=== PATIENT | male | born 1940 | race Caucasian/White ===

== ENCOUNTER → 2017-01-26 | Outpatient (CLI) | payer OTHER | LOC: BRMIMAGING 08:36 | PROVIDERS: ATTEND Internal Medicine Cardiovascular Disease | DX: R09.89 Other specified symptoms and signs involving the circulatory and respiratory systems (principal); I25.10 Atherosclerotic heart disease of native coronary artery without angina pectoris; E87.5 Hyperkalemia | CPT/HCPCS: 93880-PO ==

== ENCOUNTER → 2018-10-18 | Outpatient (CLI) | payer OTHER | LOC: BMCIMAGING 14:28 | PROVIDERS: ATTEND Internal Medicine | DX: I82.411 Acute embolism and thrombosis of right femoral vein (principal) ==

== ENCOUNTER → 2018-10-28 | Outpatient (CLI) | payer OTHER | LOC: FIMAGING 15:20 | PROVIDERS: ATTEND Surgery | DX: M19.071 Primary osteoarthritis, right ankle and foot (principal) ==

== ENCOUNTER → 2018-12-23 | Outpatient (CLI) | payer OTHER ==
[~2018-12-23] MED LIST: IOPAMIDOL (ISOVUE 370) 100 ML BTL IV ONE; IOPAMIDOL (ISOVUE-300) 100 ML BTL ONE
== END ==
LOC: FIMAGING 14:27
PROVIDERS: ATTEND Surgery
DX: I70.203 Unspecified atherosclerosis of native arteries of extremities, bilateral legs (principal); L03.115 Cellulitis of right lower limb; I70.0 Atherosclerosis of aorta; I70.1 Atherosclerosis of renal artery; I70.8 Atherosclerosis of other arteries; L97.811 Non-pressure chronic ulcer of other part of right lower leg limited to breakdown of skin; M25.461 Effusion, right knee; R60.9 Edema, unspecified; I73.9 Peripheral vascular disease, unspecified
CPT/HCPCS: 75635; Q9967; 82565-PO

== ENCOUNTER → 2018-12-26 | Outpatient (CLI) | payer OTHER | LOC: FIMAGING 07:07 | PROVIDERS: ATTEND Radiology Diagnostic Radiology | DX: L97.919 Non-pressure chronic ulcer of unspecified part of right lower leg with unspecified severity (principal); R60.9 Edema, unspecified ==

== ENCOUNTER 2019-01-08 06:09 | Day surgery (SDC) | payer OTHER ==
[2019-01-08] MEDS ORDERED: diphenhydrAMINE 25 MG CAP PO ONE ×2 (06:15→09:02)
[2019-01-08] MEDS ORDERED: NS 1,000 ML IV ONE (06:15)
[2019-01-08] MEDS ORDERED: DIAZEPAM 5 MG TAB PO ONE (06:15)
[2019-01-08] MEDS ORDERED: FAMOTIDINE 20 MG TAB PO ONE (06:15)
[2019-01-08] MEDS ORDERED: ASPIRIN EC 325 MG TAB PO ONE ×2 (06:15→09:02)
--- NOTE | 2019-01-08 06:44 | PDHPUP ---
History & Physical Update H&P update statement: This history and physical update is based on an assessment of the patient which was completed after admission or registration (within 24 hours), but prior to the surgery/procedure. H&P update: H&P reviewed & patient examined, no change in patient's condition since H&P completed
--- NOTE | 2019-01-08 06:44 | PDPROPOC ---
Sedation Plan of Care Sedation Plan of Care: mental status noted, patient educated of risks, benefits , alternatives, patient can tolerate sedation ASA Classification: ASA 2 Planned drugs: fentanyl, midazolam Mallampati Score: Class 2 Mallampati Reference Image: Patient passed 3-3-2 rule?: Yes
[2019-01-08 07:27] LABS: PLATELET COUNT 193 10^3/uL (150-400)
[2019-01-08 07:36] LABS: INR 1.11 (0.83-1.16); PROTIME(PATIENT) 13.9 SEC (12.0-15.0)
[2019-01-08] MEDS ORDERED: fentaNYL 100 MCG/2 ML INJ ONE ×2 (08:42→09:57)
[2019-01-08] MEDS ORDERED: MIDAZOLAM 2 MG/2 ML VIAL ONE ×2 (08:42→09:57)
[2019-01-08] MEDS ORDERED: LIDOCAINE 1% 300 MG/30 ML SDV ONE (08:42)
[2019-01-08] MEDS ORDERED: IOPAMIDOL (ISOVUE-370) 150 ML BTL IV ONE (08:43)
[2019-01-08] MEDS ORDERED: FAMOTIDINE 20 MG TAB ONE (09:02)
[2019-01-08] MEDS ORDERED: DIAZEPAM 5 MG TAB ONE (09:02)
[2019-01-08] MEDS ORDERED: HEPARIN 10,000 UNIT/10 ML MDV (1,000 UNIT/ML) ONE ×2 (09:35→10:26)
[2019-01-08] MEDS ORDERED: IOPAMIDOL (ISOVUE-300) 100 ML BTL ONE (10:21)
--- NOTE | 2019-01-08 11:21 | CPEKG ---
Test Reason : OPEN Blood Pressure : / mmHG Vent. Rate : 057 BPM Atrial Rate : 058 BPM P-R Int : 270 ms QRS Dur : 203 ms QT Int : 547 ms P-R-T Axes : 065 -05 264 degrees QTc Int : 533 ms Sinus rhythm Prolonged CA interval Left bundle branch block Confirmed by Agusto Currie ([id number]) on 01/08/2019 11:21:12 AM Referred By: Bentley Pina Confirmed By:Agusto Currie
[2019-01-08] MEDS ORDERED: ATROPINE SULFATE 1 MG/10 ML SYR IVP PRN (11:36)
[2019-01-08] MEDS ORDERED: ONDANSETRON 4 MG/2 ML VIAL IVP PRN (11:36)
[2019-01-08] MEDS ORDERED: NITROGLYCERIN 0.4 MG BTL SL PRN (11:36)
[2019-01-08] MEDS ORDERED: OXYCODONE/APAP 5/325 TAB PO PRN (11:36)
[2019-01-08] MEDS ORDERED: HYDROCODONE/APAP 5/325 TAB PO PRN (11:36)
[2019-01-08] MEDS ORDERED: CLOPIDOGREL BISULFATE 75 MG TAB ONE (11:38)
[2019-01-08] MEDS ORDERED: CLOPIDOGREL BISULFATE 75 MG TAB PO ONE ×2 (12:00)
--- NOTE | 2019-01-08 18:27 | CPIP ---
[f rep st] INVASIVE CARDIAC PROCEDURE DATE OF PROCEDURE: 01/08/2019 INDICATIONS FOR PROCEDURE: Nonhealing ulceration, right lower extremity. PROCEDURE: 1. Nonselective left groin sheathogram. 2. Abdominal aortogram. 3. Successful catheter placed in the right contralateral common femoral artery. 4. Runoff of right lower extremity. 5. Attempted wiring of posterior tibial artery and anterior tibial artery. 6. Percutaneous transluminal angioplasty of the proximal peroneal artery with 3.0 x 20 mm balloon an d a 4.0 x 30 mm balloon. HISTORY: Briefly, this is a 78-year-old male with history of nonhealing ulceration of right lower ex tremity. The patient had a CT-A, which showed diffuse triple-vessel disease, infrapopliteal bilateral ly. Given these findings, the patient was consented for invasive angiography. DESCRIPTION OF PROCEDURE: After informed consent, the patient was brought to [facility] where the left groin was prepped and draped in normal sterile fashion. Using lidocaine, a short 6-F rench sheath left common femoral artery verified angiographically. Through the left 6-Jamaican sheath, a pigtail catheter was advanced to the descending aorta. Abdominal aorta was obtained, which showed p atent descending aorta, patent bilateral common, external, internal iliac arteries. Condon flush c atheter was advanced to the right contralateral common femoral artery. Runoff of the right lower extr emity showed patent right common femoral artery, patent right profunda artery. The SFA was widely pat ent with an area of maybe 20% to 30% ulceration in his mid distal aspect. Right popliteal artery appe ared patent, but it was limited visually by knee prosthesis. At this point, a long stiff Glidewire wa s advanced to the right popliteal artery. The Condon flush catheter was removed. A short 6-Jamaican sheath was removed. A 90 cm 6-Jamaican Destination was advanced to the right popliteal artery verified angiographically. At this time, the patient was administered a total of 12,000 heparin IV during the case. Initially, we tried a Choice PT wire, followed by a Miracle 6, followed by a Confianza Pro 12 to ente r in the anterior tibial artery with a Quick-Cross 0.014 backup support catheter. Even with the Confi anza Pro, the wire could not traverse more past the mid sheriff given the heavily calcified WELDER FITTER of the r ight anterior tibial artery. Angiographic images prior to wiring this vessel had shown a 100% occlude d right anterior tibial artery, 100% occluded right posterior tibial artery. There was 70% calcified disease in the proximal peroneal artery. The peroneal artery was a dominant vessel, which fed collate rals of the foot via very mid small collaterals to distal forefoot posterior tibial artery and anteri or tibial artery. There was no true reconstitution of either the anterior tibial artery or posterior tibial artery via antegrade flow. Most of this came via side collaterals off the peroneal artery. Aga in, hence why we initially tried to wire the distal artery. This was not successful with the Wengoianz a Pro wire. We then pulled back the system and entered in the posterior tibial artery attempting to wire this ves luann with the same system and a stiff wire; however, again, this would stop at the mid sheriff level. We decided not to proceed with any aggressive wiring of either of these vessels, secondary to the fact t hat there was no real reconstitution of the vessel at the forefoot and many of the reconstituted the area was coming from the peroneal artery from side collaterals. The peroneal artery did, however, hav e a proximal calcified shelf of at least 70% disease in its proximal aspect. We decided to wire this vessel, and after wiring the vessel, we performed HOME BUILDER with a 3.0 x 20 mm balloon at the proximal luciana andrew artery, followed by a 4.0 x 30 mm balloon in the proximal peroneal. After this was performed, an giographic images were obtained, which showed much improved patency of the proximal peroneal with ANDI I-3 flow through this vessel. There was still intact flow down the peroneal artery to the forefoot gi ving off the collateral vessels to the posterior tibial artery and the anterior tibial artery. At thi s time, the wire was removed. The catheter was removed. The left groin was closed with a 6-Jamaican Ang io-Seal. The patient tolerated the procedure well with no complications. Of note, the patient does have a history of chronic renal insufficiency and was hydrated for 3 hours with IV normal saline at 100 cc/hour. IMPRESSION: 1. Successful percutaneous transluminal angioplasty of high-grade calcified proximal peroneal artery with 4.0 x 30 mm balloon. 2. 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 3. 20% to 30% disease in the distal superficial femoral artery. PLAN: At this time, the patient will continue with aggressive wound care. We will restart his Cinthia mendoza. Will follow up in the office in 1 week's time. /[id number]/MODL
== END 2019-01-08 14:10 | disposition home or self-care (01) ==
LOC: FCATH 06:09
PROVIDERS: ATTEND Internal Medicine Cardiovascular Disease
PROC: B41D1ZZ Fluoroscopy of Aorta and Bilateral Lower Extremity Arteries using Low Osmolar Contrast (ICD-10-PCS; principal; 2019-01-08)
PROC: 047T3ZZ Dilation of Right Peroneal Artery, Percutaneous Approach (ICD-10-PCS; principal; 2019-01-08)
DX: I70.232 Atherosclerosis of native arteries of right leg with ulceration of calf (principal); L97.219 Non-pressure chronic ulcer of right calf with unspecified severity; N18.3 Chronic kidney disease, stage 3 (moderate); E11.22 Type 2 diabetes mellitus with diabetic chronic kidney disease; K21.9 Gastro-esophageal reflux disease without esophagitis; I12.9 Hypertensive chronic kidney disease with stage 1 through stage 4 chronic kidney disease, or unspecified chronic kidney disease; I25.2 Old myocardial infarction; E78.2 Mixed hyperlipidemia
CPT/HCPCS: 37228; 75625; 75710; 93005; C1725; C1769; C1760; C1887; J1644; J2250; J3010; Q9967